=== PATIENT | male | born 1950 | race Caucasian/White ===

== ENCOUNTER 2024-12-19 13:02 | Emergency (ER) | payer MEDICARE, OTHER, SELFPAY ==
[2024-12-19 13:09] VITALS: BP 148/88
[2024-12-19 13:44] LABS: % Basophils 0.8 % (0-2); % Eosinophils 4.6 % (0-6); % Immature Granulocytes 0.3 % (0-0.5); % Lymphocytes 14.5 % (20.5-51.1); % Monocytes 7.5 % (1.7-9.3); % Neutrophils 72.3 % (42.2-75.2); Absolute Basophils 0.1 10^3/uL (0-0.2); Absolute Eosinophils 0.5 10^3/uL (0-0.7); Absolute Lymphocytes 1.6 10^3/uL (1.2-3.4); Absolute Monocytes 0.8 10^3/uL (0.1-0.6); Absolute Neutrophils 8.1 10^3/uL (1.4-6.5); Hematocrit 44.6 % (39.0-52.0); Hemoglobin 15.6 g/dL (13.0-18.0); Mean Corpuscular Hgb 31.8 pg (27.0-31.0); Mean Corpuscular Volume 90.8 fL (80.0-94.0); Mean Platelet Volume 9.5 fL (7.4-10.4); Nucleated Red Blood Cells % 0 % (-); Platelet Count 266 10^3/uL (130-400); Red Blood Cell Count 4.91 10^6/uL (4.70-6.10); Red Cell Dist. Width 13.9 % (11.5-14.5); White Blood Cell Count 11.1 10^3/uL (4.8-10.8)
[2024-12-19 14:05] LABS: ALT (SGPT) 21 U/L (0-50); AST (SGOT) 25 U/L (17-59); Albumin 5.1 g/dl (3.5-5.0); Alkaline Phosphatase 68 U/L (38-126); Blood Urea Nitrogen 13 mg/dl (9-20); Carbon Dioxide 24 mmol/L (22-30); Chloride 109 mmol/L (98-107); Glucose 118 mg/dl (70-99); Potassium 4.3 mmol/L (3.5-5.1); Sodium 145 mmol/L (135-145); Total Bilirubin 0.8 mg/dl (0.2-1.3); Total Protein 7.8 g/dl (6.3-8.2); eGFR > 60.00
[2024-12-19 14:13] LABS: Troponin I < 0.012 ng/ml
[2024-12-19 15:07] VITALS: BP 132/104
[2024-12-19 15:34] VITALS: BMI 21.2
--- NOTE | 2024-12-19 15:49 | ED.GENMED ---
History of Present Illness
General
Chief Complaint: Chest Pain
Source: patient
Exam Limitations: none
Time Seen by Provider: 12/19/24 15:04
Nursing documentation reviewed up to this point in time: agreed with
History of Present Illness
History of Present Illness:
The patient is a 74-year-old male with a history of mitral valve replacement, hypertension, hyperlipidemia, gout, and neurogenic bladder requiring self-catheterization, presenting with chest pain. The patient reports that the pain began following
open-heart surgery on August 30 at [facility] ([facility] and TV repair). The chest pain was initially mild but increased in severity over the past few weeks. It is described as being more tender, particularly with movement. The patient also noted dizziness when
standing, requiring pause before movement, mainly since the surgery and his physician is aware. 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 The patient also
reports a recent mild upper respiratory infection with mild cough starting about a week ago.
Denies f/c/n/v/d/c.
Pt was on Coumadin post op but that has been DC'd.
Past History
Past History
ED Past Medical History: HTN, Hypercholesterolemia, Valvular disease (Mitral regurgitation), Other (BPH, urinary retention, hypotonic bladder, gout) and Other (Kidney stones)
ED Past Surgical History: Urological (TURP)
Social History
Tobacco: Non-smoker
Alcohol: Occasional
Drug: None
Personal:
Living: with family
Employment: Employed
Family History
Family History: Other (Noncontributory)
Review of Systems
Review of Systems
Allergies reviewed?: Yes
All Other Systems: ROS reviewed and negative except as documented in HPI and ROS
Constitutional: Denies fever or chills
Respiratory: Reports cough (mild past week); Denies trouble breathing
Cardiac: Reports chest pain; Denies diaphoresis or palpitations
ABD/GI: Denies abdominal pain or nausea
: Reports other (Self catheterizes for neurogenic bladder)
Musculoskeletal: Reports no symptoms
Skin: Reports no symptoms
Neurological: Reports dizzy (gets dizzy at times when changing positions, this is not new)
Phy Exam
Physical Exam
Physical Exam:
GENERAL: No acute distress. A&Ox3.
CONSTITUTIONAL: Afebrile.
EYES: clear, conjunctivae normal
ENMT: moist mucus membranes, Pharynx nl
RESPIRATORY: Regular respirations, nonlabored, lungs clear.
CARDIOVASCULAR: Regular rate and rhythm, no murmurs, no rubs.
GI: Soft, nontender, normal BS
MUSCULOSKELETAL: Moves with ease. Well perfused. Deep breath makes his chest pain worse. Unable to reproduce with palpation.
SKIN: Warm, dry, pink
PSYCH: Normal mood and affect. Well kept, interactive and appropriate
NEUROLOGIC: Awake, alert and oriented. No focal neurological deficits
Scores
Heart Score for Chest Pain Patients
STEMI patient?: Not applicable
Course
Orders/Labs/Results
Orders:
Orders
12/19/24 13:03
Electrocardiogram (*1) Urgent
Reason for Study: Chest Pain
EKG- Treatment ONCE
12/19/24 13:29
Complete Blood Count/With Diff Urgent
Comprehensive Metabolic Panel Urgent
Troponin I Urgent
12/19/24 16:56
CT Chest PE Study Urgent
Comment:
Reason For Exam: CP, tachycardia
12/19/24 17:02
0.9% Sodium Chloride 500 ml [Nss] 500 ml IV BOLUS
Abnormal Lab Results
12/19/24
13:29
WBC 11.1 H 10^3/uL
(4.8-10.8)
MCH 31.8 H pg
(27.0-31.0)
Absolute Neuts (auto) 8.1 H 10^3/uL
(1.4-6.5)
Absolute Monos (auto) 0.8 H 10^3/uL
(0.1-0.6)
Lymphocytes % 14.5 L %
(20.5-51.1)
Chloride 109 H mmol/L
(98-107)
Glucose 118 H mg/dl
(70-99)
Albumin 5.1 H g/dl
(3.5-5.0)
12/19/24 13:29
12/19/24 13:29
Vital Signs
Initial and Last Documented VS:
Initial Vital Signs
Temp Pulse Resp BP Pulse Ox
98.0 F 105 20 148/88 99
12/19/24 13:09 12/19/24 13:09 12/19/24 13:09 12/19/24 13:09 12/19/24 13:09
Last Documented Vital Signs
Temp Pulse Resp BP Pulse Ox
98.0 F 100 21 147/108 97
12/19/24 13:09 12/19/24 19:30 12/19/24 19:30 12/19/24 19:00 12/19/24 19:30
Consulting Networking Engineer consulted with Physician
Consulting Networking Engineer consulted with physician?: Yes
Name of Physician Consulted: Layton
MDM/Problems Addressed
Differential Diagnosis Includes:
The Differential Diagnosis includes, in no particular order and is not limited to:
1. Costochondritis
2. Myocardial infarction
3. Musculoskeletal strain
4. Upper respiratory infection
5. PE
MDM/Problems Addressed:
The patient is a 74-year-old male with a history of mitral valve replacement, hypertension, hyperlipidemia, gout, and neurogenic bladder requiring self-catheterization, presenting with chest pain. The patient reports that the pain began following
open-heart surgery on August 30 at [facility] (MVR and TV repair). The chest pain was initially mild but increased in severity over the past few weeks. It is described as being more tender, particularly with movement. The patient also noted dizziness when
standing, requiring pause before movement, mainly since the surgery and his physician is aware. 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 The patient also
reports a recent mild upper respiratory infection with mild cough starting about a week ago.
Denies f/c/n/v/d/c. Denies SOB.
Pt was on Coumadin post op but that has been DC'd.
EKG: Sinus tack HR 103 w few PAC's
Current medications include methocarbamol, multivitamin, vitamin D3, aspirin 80 mg, potassium, and rosuvastatin.
5:00 p.m.
The patient blood work results indicate normal findings, including troponin levels, ruling out a myocardial infarction.
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 Pt agrees.
Case discussed with Dr. Traylor
Persistent mild tachycardia at rest, pleuritic type chest pain, will get Chest CT to r/o PE
Monitor has been with HR 98-101 Sinus
Case discussed with Basilia SANCHEZ who will assume care from this point
PE study pending
IVF's infusion
Chronic conditions affecting care:
Chronic conditions affecting care: hypertension, hyperlipidemia, gout, neurogenic bladder, and mitral valve replacement.
*Pulse Oximetry
SaO2: 98
Oxygen Mode of Delivery: Room air
Patient hypoxic: no
*EKG
EKG Intrepretation Date: 12/19/24
Interpretation: abnormal
Heart Rate: 103
Rate: tachycardiac
Rhythm: sinus
[place]: normal axis
Interval: normal interval
QRS Pattern: normal QRS
Ischemia: no ischemia
*Critical Care Note
Total Time (30-74mins, 75-104mins- exclusive of procedures): Not Applicable
ED Attending Note
-
Portions of this chart may have been created with voice recognition software.� Occasional wrong word or��sound alike� substitutions may have occurred due to the inherent limitations of voice recognition software.
Discharge Plan
Departure
Patient Disposition: Home (Routine Discharge)
Date of Disposition: 12/19/24
Time of Disposition: 19:35
Patient with high blood pressure during this ER visit?: Yes
Condition: Good
Discharge Problem:
Chest pain
Instructions: Chest pain, BLOOD PRESSURE
Prescriptions:
No Action
aspirin 81 MG tablet,delayed release (DR/EC)
81 mg PO QPM
sildenafil [Viagra] 100 MG tablet
50 mg PO PRN PRN (Reason: sexual arousal)
atenolol 50 MG tablet
50 mg PO QPM
simvastatin 40 mg tablet
40 mg PO QPM
pantoprazole 40 mg tablet,delayed release (DR/EC)
40 mg PO QPM
colchicine 0.6 MG tablet
0.6 mg PO QPM
multivitamin Tablet
1 tab PO QPM
cholecalciferol (vitamin D3) [Vitamin D3] 25 mcg (1,000 unit) Capsule
25 mcg PO QPM
acetaminophen [acetaminophen] 325 mg tablet
650 mg PO Q4HPRN PRN (Reason: mild pain) Qty: 1 0RF
ibuprofen 200 mg tablet
400 - 600 mg PO Q6HPRN PRN (Reason: moderate pain) Qty: 1 0RF
oxycodone 5 mg tablet
5 mg PO Q4HPRN PRN (Reason: breakthrough/severe pain) Qty: 10 0RF
Referrals:
NONE,* [Family Provider, Internal Medicine]
Activity Restrictions/Additional Instructions:
RETURN TO THE EMERGENCY DEPARTMENT WITH ANY CHEST PAIN, SHORTNESS OF BREATH/DIFFICULTY BREATHING, PERSISTENT LIGHTHEADEDNESS/DIZZINESS, APNEA EPISODES OF FAINTING, INTRACTABLE PAIN IN CHEST OR BACK, WORSENING CURRENT SYMPTOMS, OR ANY OTHER CONCERNS
- As discussed your lab work and CT scan of your chest showed no acute abnormalities today. There was no evidence of a blood clot in your lung today.
- You can take Tylenol as needed for discomfort. Please limit activities that further aggravate your symptoms.
- Follow-up with your primary care provider and stummel selector for further evaluation/management to ensure that symptoms are improving
Monitor your symptoms closely and return to the emergency department with any acute worsening/new symptoms or any other concerns
Interventions
Interventions:
*Risk Screen - Suicide Last Done: 12/19/24 13:09
*General Assessment Last Done: 12/19/24 15:34
*Neglect/Abuse Screening Last Done: 12/19/24 13:09
*ED- Fall Risk Assessment Last Done: 12/19/24 15:34
*ED COVID-19 Vaccine History Last Done: 12/19/24 15:34
*Nursing Disposition Last Done: 12/19/24 20:03
ED- Cardiac Assessment Last Done: 12/19/24 15:34
Discharge Date and Time
Discharge Date/Time: 12/19/24 20:03
Print Language: AUSTRIAN
[2024-12-19 16:00] VITALS: BP 137/91
[2024-12-19] MEDS: NSS 500 IV (17:43)
[2024-12-19 17:44] VITALS: BP 144/89
[2024-12-19 18:00] VITALS: BP 144/94
[2024-12-19 19:00] VITALS: BP 147/108
== END 2024-12-19 20:03 | disposition home or self-care (01) ==
LOC: EMR 13:02
PROVIDERS: Student in an Organized Health Care Education/Training Program; EMERGENCY PHYSICIAN Emergency Medicine
DX: R07.89 Other chest pain (principal); I10 Essential (primary) hypertension; E78.00 Pure hypercholesterolemia, unspecified; N31.9 Neuromuscular dysfunction of bladder, unspecified; Z79.01 Long term (current) use of anticoagulants; Z87.442 Personal history of urinary calculi; Z90.79 Acquired absence of other genital organ(s); Z95.2 Presence of prosthetic heart valve
CPT/HCPCS: 99284; 71275; 80053; 84484; 85025; 93005; Q9967

== ENCOUNTER → 2025-02-28 09:20 | Outpatient (REF) | payer MEDICARE, OTHER, SELFPAY | LOC: WDC 09:20 | PROVIDERS: ATTENDING PHYSICIAN Nurse Practitioner | DX: N64.4 Mastodynia (principal) | CPT/HCPCS: 76642; 77062; 77066 ==